=== PATIENT | male | born 1985 | race Caucasian/White ===

== ENCOUNTER 2023-11-04 23:16 | Emergency (ER) | payer MEDICARE, OTHER, SELFPAY ==
[2023-11-04 23:21] VITALS: BP 155/84
[2023-11-04 23:28] LABS: Glucose - Point of Care 96 mg/dl (70-99)
--- NOTE | 2023-11-05 00:01 | ED.GENMED ---
History of Present Illness
General
Chief Complaint: Blood Sugar Problem
Time Seen by Provider: 11/05/23 00:01
Travel History
Have you had any contact with someone who has COVID-19?: No
Do you have any symptoms of coronavirus? Fever > 100 degrees, chills, cough, shortness of breath, sore throat, loss of taste or smell, muscle aches, or headache?: No
History of Present Illness
History of Present Illness:
HPI: Patient presents due to concerns for high blood sugars. He states that he was told that his blood sugars had been high in the past but does not have a glucometer at home. He states that he passes out especially after he eats a meal high in
carbohydrates. He was told he has a history of prediabetes and was concerned because of a blood sugar issue. Upon arrival here his blood sugar was 96 and he was concerned that this is too high for him. He also has a history of sleep apnea.
EXAM:
GENERAL: Well appearing in no distress, he does not appear intoxicated
HEENT: Moist oral mucosa
CARDIOVASCULAR: No murmurs, normal heart rate, regular rhythm, No chest wall tenderness
PULMONARY: No respiratory distress, breath sounds are clear and equal
ABDOMEN: Soft with no peritoneal signs, no tenderness, elevated BMI
NEUROLOGIC: Excellent strength all extremities, no coordination deficits
PSYCHIATRIC: Appropriate mental status, normal insight and judgement
EXTREMITIES: Nontender, no edema, moves all extremities equally
SKIN: No rash, no lesions
TIME OF INITIAL ENCOUNTER: 12:05 AM
NUMBER AND COMPLEXITY OF PROBLEMS ADDRESSED AT THE ENCOUNTER
� Chronic conditions affecting care: GERD, history of alcohol abuse, has had brain surgery, prediabetes
� Acute Exacerbation and/or Progression of Chronic Illness: This is a subacute problem
� Differential Diagnosis includes: Hyperglycemia, undiagnosed diabetes, sleep apnea, electrolyte abnormality, anemia
AMOUNT AND/OR COMPLEXITY OF DATA TO BE REVIEWED AND ANALYZED
� I performed an independent evaluation of and my interpretation is:
EKG: Sinus 64, no acute ST abnormality, normal intervals
CT:
X-rays:
Laboratory Studies: CBC unremarkable, sodium slightly low at 133, glucose is 91
Other:
� Review of other/old records: The patient was seen as a crisis evaluation in 2021. Old records also show a history of benzo abuse.
� Clinical information was obtained by an independent historian: None needed
� Prescriptions/Medications Considered but not given:
� Further testing considered but not performed:
RISK OF COMPLICATIONS AND/OR MORBIDITY OR MORTALITY OF PATIENT MANAGEMENT
� Social determinants of health affecting care: The patient tells me that he has been 'staying in rooms' in the [facility] [place] and is now currently back in the [facility]
� Discussion with other providers:
� Escalation of care including admission/observation vs risk of discharge considered: Blood sugars here on 2 occasions have been in the 90s. There does not appear to be any issue with his blood sugars tonight. The patient was
given IV fluid. On reassessment at 1:50 AM, the patient appears very calm. He seems to perseverate over his concern for diabetes however there is no clear evidence for diabetes at this time. Given his body habitus I suggested the possibility of
sleep apnea�I have given him the contact information for local interlocking and signal mechanic. Is very well-appearing at time of discharge.
Past History
Past History
ED Past Medical History: Psychiatric and Other
ED Past Surgical History: None and Other
Social History
Tobacco: Non-smoker
Alcohol: Other (Patient unable to answer)
Drug: None
Personal: Other
Living: with family
Employment: Other
Family History
Family History: Other and Unable to obtain
Phy Exam
Physical Exam
Physical Exam:
See HPI
Course
Orders/Labs/Results
Orders:
Orders
11/05/23 00:02
0.9% Sodium Chloride 1000 ml [Nss] 1,000 ml IV BOLUS
03/29/24 00:09
Electrocardiogram (*1) Urgent
Reason for Study: Syncope
EKG- Treatment ONCE
11/05/23 00:49
Alcohol Urgent
Complete Blood Count/With Diff Urgent
Comprehensive Metabolic Panel Urgent
Hemoglobin A1c [Glycohemoglobin (HgbA1c)] Urgent
11/05/23 01:34
Famotidine [Pepcid] 20 mg .ROUTE .STK-MED ONE
11/05/23 01:44
Famotidine [Pepcid] 20 mg IV NOW STA
Abnormal Lab Results
11/05/23
00:49
MPV 10.8 H fL
(7.4-10.4)
Abs Immat Gran (auto) 0.1 H 10^3/uL
(0-0.05)
Immature Gran % 0.7 H %
(0-0.5)
Eosinophils % 6.2 H %
(0-6)
Sodium 133 L mmol/L
(135-145)
ALT 68 H U/L
(0-50)
11/05/23 00:49
11/05/23 00:49
Vital Signs
Initial and Last Documented VS:
Initial Vital Signs
Temp Pulse Resp BP Pulse Ox
97.7 F 56 24 155/84 99
11/04/23 23:21 11/04/23 23:21 11/04/23 23:21 11/04/23 23:21 11/04/23 23:21
Last Documented Vital Signs
Temp Pulse Resp BP Pulse Ox
97.7 F 56 24 154/109 95
11/04/23 23:21 11/04/23 23:21 11/04/23 23:21 11/05/23 00:51 11/05/23 00:52
*Critical Care Note
Total Time (30-74mins, 75-104mins- exclusive of procedures): Not Applicable
ED Attending Note
-
Portions of this chart may have been created with voice recognition software.� Occasional wrong word or��sound alike� substitutions may have occurred due to the inherent limitations of voice recognition software.
Discharge Plan
Departure
Patient Disposition: Home (Routine Discharge)
Date of Disposition: 11/05/23
Time of Disposition: 01:51
Patient with high blood pressure during this ER visit?: Yes
Discharge Problem:
Syncope and collapse
Instructions: Syncope (Fainting) (DC), BLOOD PRESSURE
Prescriptions:
No Action
No Current Medications
0
Referrals:
Isaiah Lopez MD [Active] - Follow up in 2-3 days
UNKNOWN - PT DOES,NOT KNOW [Family Provider] -
Activity Restrictions/Additional Instructions:
The cause of your symptoms is unclear. 2 blood sugar levels were checked tonight, the first 1 was 96 and the second almost 91. There is no clear sign for this being diabetes related. An A1c level is currently pending. Alcohol level was not
detected. Other basic labs are unremarkable. Sleep apnea is a possibility of contributing factor for your symptoms therefore recommend that you follow-up with a interlocking and signal mechanic.
Interventions
Interventions:
*Risk Screen - Suicide Last Done: 11/04/23 23:21
*Neglect/Abuse Screening Last Done: 11/04/23 23:21
*ED COVID-19 Vaccine History Last Done: 11/04/23 23:21
ED- Neurological Assessment Last Done: 11/05/23 00:55
Discharge Date and Time
Print Language: PORTUGUESE
[2023-11-05 00:51] VITALS: BP 154/109
[2023-11-05 01:00] VITALS: BP 123/108
[2023-11-05] MEDS: NSS 1000 IV (01:00)
[2023-11-05 01:03] LABS: % Basophils 0.6 % (0-2); % Eosinophils 6.2 % (0-6); % Immature Granulocytes 0.7 % (0-0.5); % Lymphocytes 36.8 % (20.5-51.1); % Monocytes 7.4 % (1.7-9.3); % Neutrophils 48.3 % (42.2-75.2); Absolute Basophils 0.1 10^3/uL (0-0.2); Absolute Eosinophils 0.5 10^3/uL (0-0.7); Absolute Immature Granulocytes 0.1 10^3/uL (0-0.05); Absolute Monocytes 0.6 10^3/uL (0.1-0.6); Absolute Neutrophils 3.9 10^3/uL (1.4-6.5); Hemoglobin 14.1 g/dL (13.0-18.0); Mean Corp Hgb Conc. 33.6 g/dL (33.0-37.0); Mean Corpuscular Hgb 29.9 pg (27.0-31.0); Mean Platelet Volume 10.8 fL (7.4-10.4); Nucleated Red Blood Cells % 0 % (-); Platelet Count 347 10^3/uL (130-400); Red Blood Cell Count 4.72 10^6/uL (4.70-6.10)
[2023-11-05 01:16] LABS: ALT (SGPT) 68 U/L (0-50); AST (SGOT) 44 U/L (17-59); Albumin 4.9 g/dl (3.5-5.0); Alkaline Phosphatase 92 U/L (38-126); Blood Urea Nitrogen 14 mg/dl (9-20); Carbon Dioxide 24 mmol/L (22-30); Chloride 103 mmol/L (98-107); Glucose 91 mg/dl (70-99); Potassium 4.2 mmol/L (3.5-5.1); Sodium 133 mmol/L (135-145); Total Bilirubin 0.6 mg/dl (0.2-1.3); Total Protein 7.9 g/dl (6.3-8.2); eGFR > 60.00
[2023-11-05] MEDS: PEPCID 20 MG IV (01:44)
[2023-11-05 01:47] LABS: Alcohol None Detected
== END 2023-11-05 02:24 | disposition home or self-care (01) ==
LOC: EMR 23:16
PROVIDERS: EMERGENCY PHYSICIAN Emergency Medicine
DX: R55 Syncope and collapse (principal); R73.9 Hyperglycemia, unspecified; R20.2 Paresthesia of skin; R03.0 Elevated blood-pressure reading, without diagnosis of hypertension
CPT/HCPCS: 99284; 96374; 96361; 80053; 82077; 82962; 83036; 85025; 93005